=== PATIENT | female | born 1960 | race Two or more races ===

== ENCOUNTER → 2020-01-31 | Outpatient (CLI) | payer MEDICARE ==
[~2020-01-31] MED LIST: ATOR10TA60 PO; CHOL500050 PO; HYDR-3164 PO; LISI1TAB37 PO; METF500T16 PO; allergy pill
== END ==
LOC: LAB 13:35
PROVIDERS: ATTEND Surgery
DX: Z01.812 Encounter for preprocedural laboratory examination (principal); K80.20 Calculus of gallbladder without cholecystitis without obstruction; Z20.828 Contact with and (suspected) exposure to other viral communicable diseases
CPT/HCPCS: U0003

== ENCOUNTER 2020-02-04 09:59 | Day surgery (SDC) | payer MEDICARE ==
[~2020-02-04] VITALS: Ht 162.6 cm; Wt 80.0 kg
[~2020-02-04 09:59] MED LIST changes: +BUPIVACAINE MPF 0.5% 30 ML VIAL. ONE; -HYDR-3164 PO; +HYDROmorphone 2 MG/ML VIAL IV PRN; +IOHEXOL 300 MG/ML 50 ML VIAL. ONE; +IV RINGERS,LACTATED 1000ML 1,000 ML IV SCH; +LIDOCAINE 1% PF 2 ML VIAL. ID PRN; +MORPHINE SULFATE 2 MG/ML VIAL. IV PRN; +ONDANSETRON PF 4 MG/2 ML VIAL. IV PRN; +PROCHLORPERAZINE 10 MG/2 ML VIAL. IV PRN; +SURGICEL HEMOSTAT 4X8 EACH. ONE; +fentaNYL PF VIAL 100 MCG/2 ML VIAL IV PRN
[2020-02-04] MEDS ORDERED: DEXAMETHASONE SOD PHOS 4 MG/ML VIAL ONE (10:33)
[2020-02-04] MEDS ORDERED: ONDANSETRON PF 4 MG/2 ML VIAL. ONE (10:33)
[2020-02-04] MEDS ORDERED: ROCURONIUM 50 MG/5 ML VIAL. ONE (10:33)
[2020-02-04] MEDS ORDERED: PROPOFOL 10 MG/ML (20ML) VIAL. IV ONE (10:33)
[2020-02-04] MEDS ORDERED: fentaNYL PF VIAL 250 MCG/5 ML VIAL ONE (10:33)
[2020-02-04] MEDS ORDERED: LIDOCAINE 2% PF 5 ML VIAL. ONE (10:33)
[2020-02-04] MEDS ORDERED: INSULIN LISPRO 100 UNIT/ML 3ML VIAL for OP,RR ONLY. SQ PRN (11:00)
[2020-02-04] MEDS ORDERED: INSULIN LISPRO 100 UNIT/ML 3ML VIAL for OP,RR ONLY. SQ ONE (11:00)
[2020-02-04] MEDS ORDERED: IOHEXOL 300 MG/ML 50 ML VIAL. ONE (11:20)
[2020-02-04] MEDS ORDERED: BUPIVACAINE MPF 0.5% 30 ML VIAL. ONE (11:21)
[2020-02-04] MEDS ORDERED: SURGICEL HEMOSTAT 4X8 EACH. ONE (11:21)
[2020-02-04] MEDS ORDERED: SEVOFLURANE 61 TO 120 MINUTES. IH ONE (12:49)
[2020-02-04] MEDS ORDERED: GLYCOPYRROLATE 1 MG/5 ML VIAL. ONE (12:50)
[2020-02-04] MEDS ORDERED: NEOSTIGMINE METHYLSULFATE 5 MG/5 ML SYRINGE. ONE (12:51)
--- NOTE | 2020-02-04 13:23 | RAD ---
INDICATION: Fluoroscopy for procedure.Reason: CHOLANGIOGRAMS DONE IN OR WITH C-ARM/ 22 SEC FT, 3 IMAGES SENT / Spl. Instructions: / History: IMPRESSION: Fluoroscopy was utilized by the clinical service to assist with their procedure. There are 3 saved images/series. 22 seconds of fluoroscopy time was used. The limited saved images show surgical instruments at the upper abdomen with contrast injection of the bile ducts with contrast seen within the common bile duct with flow into the duodenum without evidence of common bile duct obstruction or a definite filling defect to suggest stone. This dictation is for the usage of fluoroscopy only. Please see the clinical service's procedure note for detail on the procedure. Electronically signed by: Olu Patricia MD (02/04/2020 1:20 PM) [id number]
[2020-02-04] MEDS ORDERED: KETOROLAC 30 MG/ML VIAL. ONE (13:26)
--- NOTE | 2020-02-04 13:55 | PDOC4 ---
Operative Note Operative Note Operative Note: Preoperative Diagnosis: Symptomatic cholelithiasis Postoperative Diagnosis: Same Procedure: Laparoscopic cholecystectomy with intraoperative cholangiogram Surgeons: Farhad Lead Neurodiagnostic Technologist: Corazon MILIAN Anesthesia: Gen. Estimated Blood Loss: 20 mL Specimen: Gallbladder to pathology Drains: None Complications: None Indications: The patient is a 59-year-old female who is been experiencing recurrent upper abdominal pain consistent with biliary colic. Surgical treatment was offered by means of a laparoscopic cholecystectomy. The risks of surgery were discussed which include bleeding, infection, bile duct injury, bile leak, pain, the potential for additional surgeries or procedures. The patient understands and would like to proceed. Description: The patient was taken to the operating room and laid supine on the operating table. General anesthesia was performed. The abdomen was prepped with ChloraPrep and draped in a standard surgical fashion. A small right upper quadrant incision was made through which a visualized 5 mm trocar was inserted. A pneumoperitoneum was created and the laparoscope was introduced. The lower mid abdomen showed no evidence of adhesions. A small supraumbilical incision was then placed through which an 11 mm trocar was inserted. In the upper midabdomen a 5 mm trocar was inserted and in the right upper quadrant a 2.3 mm mini lap grasper was inserted. The gallbladder was retracted cephalad. The cystic duct was dissected free from surrounding tissues. One clip was placed on the duct near the gallbladder junction. An opening was made in the duct and a cholangiocatheter placed within and secured with a clip. Using contrast dye and fluoroscopy an intraoperative cholangiogram was performed that appeared unremarkable. The clip and catheter were then withdrawn. Three clips were placed on the cystic duct and it was divided. The cystic artery was then identified, dissected free, doubly clipped and divided as well. The gallbladder was then mobilized away from the liver with cautery. The umbilical 5 millimeter trocar was exchanged for an 11 millimeter trocar. The gallbladder was then placed in an endoscopic bag and extracted at the umbilical trocar site. The fascia there was closed with an 0 Vicryl suture. All blood and irrigation fluid was suctioned and hemostasis was good. The remaining ports were removed and the pneumoperitoneum was relieved. The skin incisions were injected with half percent Marcaine with epinephrine, and all were closed using 4-0 Monocryl suture. Steri-Strips and dressings were then applied. The patient tolerated the procedure well and was sent to the recovery room in stable condition. At the end of the case all counts were correct. LATONYA HEARN MD Feb 04, 2020 13:55
--- NOTE | 2020-02-04 13:57 | DISCH ---
DISCHARGE INSTRUCTIONS Condition on Discharge Condition on Discharge: Stable Activity After Discharge Activity Instructions for Disc: Other, see below (no lifting over 20 lbs X 2 weeks) Diet after Discharge Diet after Discharge: Regular Wound Incision Care Wound/Incision Care: Other, see below (may remove band aids tomorrow and shower) Follow-Up Follow up with: Dr Hearn in 2 weeks in office, call for appt [phone] LATONYA HEARN MD Feb 04, 2020 13:57
[2020-02-04] MEDS ORDERED: HYDR-3164 PO (14:09)
[2020-02-04 14:20] VITALS: BP 147/73
[2020-02-04] MEDS ORDERED: HYDROcodone/APAP 5/325MG 1 TAB TABLET PO ONE (14:30)
--- NOTE | 2020-02-08 16:13 | PATHOLOGY ---
[facility] Accession Number: [id number] . 01 Material submitted: . gallbladder - GALLBLADDER AND CONTENTS . 01 Clinical history: . GALL STONES SYMPTOMATIC CHOLELITHIASIS . 02 Diagnosis: Gallbladder, laparoscopic cholecystectomy: - Cholelithiasis. - Cholesterolosis. - Chronic cholecystitis. [facility] 02/08/2020 1155 Local . 02 Comment: There is no evidence of malignancy. ([facility] 02/08[facility]) . 02 Electronically signed: . Leopoldo Leung MD, Pathologist NPI- [id number] . 01 Gross description: . The specimen is received in formalin labeled "Kim, Sussy, gallbladder and contents" and consists of a punctured green garrett gallbladder measuring 6.5 x 2.5 x 1.5 cm. The margin is inked black. Opening reveals a lumen filled with viscous green bile and a single oval granular dark green calculus measuring 1.9 cm. The mucosa is green with yellow stippling and an average wall thickness of 0.1 cm. No masses are identified. Service Desk Manager sections are submitted in A1. ([facility]; 02/06/2020) SYU/SYU 02/06/2020 1143 Local . 02 Pathologist provided ICD-10: K80.10 . 02 CPT . 646173 Specimen Comment: A courtesy copy of this report has been sent to [phone] Specimen Comment: Report sent to Performed at: 01 [facility] [address], [place] [id number] MD Calin Hawthorne MD Phone: [phone] Performed at: 02 [facility] [address], [place] [id number] MD Leopoldo Leung MD Phone: [phone]
== END 2020-02-04 15:00 | disposition home or self-care (01) ==
LOC: SURG 09:59
PROVIDERS: ATTEND Surgery
DX: K80.20 Calculus of gallbladder without cholecystitis without obstruction (principal); I10 Essential (primary) hypertension; E78.00 Pure hypercholesterolemia, unspecified; E11.9 Type 2 diabetes mellitus without complications; Z79.899 Other long term (current) drug therapy; Z98.890 Other specified postprocedural states; Z79.84 Long term (current) use of oral hypoglycemic drugs
CPT/HCPCS: 47563; 74300; J0690; J1100; J1815; J1885; J2405; J2704; J2710; J3010; J3490; J7120; Q9967